=== PATIENT | female | born 1965 | race Caucasian/White ===

== ENCOUNTER 2020-02-29 15:20 | Day surgery (SDC) | payer BC ==
[~2020-02-29 15:20] MED LIST: CEFEPIME 2 GM in DEXTROSE 5%-WATER 100 ML IVPB ONE; CEFEPIME HCL 2 GM VIAL (RESTRICTED TO ID) IVPB ONE; CEFOXITIN SODIUM 1 GM IVPB ONE; DESFLURANE GAS 240 ML BOTTLE IH ONE; GENTAMICIN SO4 80 MG/2 ML VIAL IVPB ONE; GENTAMICIN SO4 80 MG/2 ML VIAL ONE; GLYCOPYRROLATE 0.2 MG/1 ML VIAL ONE; MIDAZOLAM HCL 2 MG/2 ML SINGLE DOSE VIAL ONE; MUPIROCIN 2% TOPICAL OINTMENT 22 GM TUBE TP ONE; NEOSTIGMINE METHYLSULFATE 0.5 MG/1 ML - 10 ML MDV ONE; ONDANSETRON 4 MG/2 ML VIAL IVPUSH PRN; ONDANSETRON 4 MG/2 ML VIAL ONE; PROMETHAZINE HCL 25 MG/1 ML VIAL IVPUSH PRN; PROPOFOL 20 ML ONE; ROCURONIUM BROMIDE 50 MG/5 ML SYRINGE ONE; SEVOFLURANE 250 ML BTL ONE; VANCOMYCIN 1,000 MG VIAL (RESTRICTED TO ID ONLY) IVPB ONE; VANCOMYCIN 1,000 MG VIAL (RESTRICTED TO ID ONLY) ONE; cefOXitin SODIUM 2 GM VIAL (RESTRICTED TO ID) IVPB ONE; oxyCODONE HCL 5 MG TABLET PO PRN
[2020-02-29] MEDS ORDERED: ACETAMINOPHEN 325 MG TABLET (FP) ONE (15:53)
[2020-02-29] MEDS ORDERED: oxyCODONE HCL 5 MG TABLET ONE (15:54)
[2020-02-29] MEDS ORDERED: oxyCODONE HCL 5 MG TABLET PO ONE (16:05)
[2020-02-29] MEDS ORDERED: ACETAMINOPHEN 325 MG TABLET (FP) PO ONE (16:05)
[2020-02-29] MEDS ORDERED: oxyCODONE HCL 5 MG TABLET PO PRN (18:56)
[2020-02-29] MEDS ORDERED: PROCHLORPERAZINE MALEATE 5 MG TABLET PO PRN (19:03)
[2020-02-29] MEDS ORDERED: CEFEPIME 2 GM in DEXTROSE 5%-WATER 100 ML IVPB SCH (19:15)
[2020-02-29 21:33] VITALS: BMI 28.9
[2020-03-01] MEDS ORDERED: CEFEPIME 2 GM in DEXTROSE 5%-WATER 100 ML IVPB SCH (02:00)
[2020-03-01] MEDS: oxyCODONE HCL 5 MG TABLET PO PRN ×2 (02:09→08:19)
[2020-03-01] MEDS ORDERED: PT OWN MED DRAWER 7, Y5N ONE (05:05)
[2020-03-01] MEDS: LACTATED RINGERS SOLUTION 1,000 ML IV SCH ×2 (06:31→07:38)
[2020-03-01] MEDS ORDERED: glyBURIDE 2.5 MG TABLET PO SCH (07:00)
[2020-03-01] MEDS ORDERED: metFORMIN HCL 500 MG TABLET (FP) PO SCH (07:00)
[2020-03-01 08:50] VITALS: BP 123/70; PULSE 92; TEMP 97.7
[2020-03-01] MEDS ORDERED: PANTOPRAZOLE 40 MG TABLET PO SCH (10:00)
[2020-03-01] MEDS ORDERED: LISINOPRIL 10 MG TABLET (FP) PO SCH (10:00)
[2020-03-01] MEDS ORDERED: ASPIRIN COATED 81 MG TABLET.EC PO SCH (10:00)
[2020-03-01] MEDS ORDERED: HYDROCHLOROTHIAZIDE 25 MG TABLET (FP) PO SCH (10:00)
--- NOTE | 2020-03-04 12:20 | OP ---
DATE OF OPERATION: 02/29/2020 PREOPERATIVE DIAGNOSIS: Open wound of right lower leg with exposure of Achilles tendon. POSTOPERATIVE DIAGNOSIS: Open wound of right lower leg with exposure of Achilles tendon. PROCEDURE: 1. Debridement of open wound of right lower leg and right thigh (280 sq cm total). 2. Complex closure of right medial thigh wound (30 cm length). 3. Elevation, revision, advancement, and re-insetting of right lower leg gracilis microvascular free flap (100 sq cm). 4. Application of vacuum-assisted closure dressing to right lower leg. ATTENDING SURGEON: Gee Olmstead MD CO-SURGEON: Trent Mendoza MD ANESTHESIA: General endotracheal. ESTIMATED BLOOD LOSS: Less than 20 mL. DRAINS: A number 15 round Nestor drain x1 to right medial thigh. SPECIMEN: Right lower leg wound culture to microbiology. COMPLICATIONS: None. CONDITION: Stable to recovery room, extubated. INDICATIONS: The patient is a 54-year-old female with multiple medical comorbidities including poorly controlled diabetes, peripheral vascular disease, active smoking, obesity, poor nutrition, and hypertension who developed an open wound of the right lower leg in December 2019. This was initially managed with local wound care. The patient then presented to mt and underwent debridement of the open wound and coverage with a gracilis microvascular free flap and split-thickness skin graft on February 15, 2020. The patient's microvascular free flap has maintained good perfusion, but there has been a lack of healing of both the gracilis flap to the surrounding skin edges as well as the right medial thigh donor site incision. The patient has been counseled that her active smoking and poor nutrition as well as poorly controlled diabetes significantly negatively impacts her healing potential. She is brought back to the operating room today for repeat irrigation and debridement and local tissue rearrangement and reclosure of her open wounds. The risks, benefits and alternatives of the surgery were discussed with the patient and her family preoperatively and all questions were answered. The risks include but are not limited to bleeding, infection, pain, need for revision or further surgery, damage to neighboring structures including nerves, arteries, veins and tendons, need for amputation in the future. The patient understands these risks and has elected to proceed with surgery. PROCEDURE: After proper identification and marking of the patient in the preoperative holding area, the patient was transported to the operating room and placed supine on the table where all noninvasive anesthesia monitors were applied. Intravenous access was established. General anesthesia was administered and the patient was intubated without difficulty. An SCD boot was applied to the left lower extremity. Intravenous antibiotics were then given as per the schedule. The patient was then carefully flipped into a prone position with care taken to pad all pressure points. At this point the patient's right lower extremity dressings were removed and the right leg was prepped and draped in the usual sterile fashion. Attention was first turned towards the irrigation and debridement of the open wound. Dr. Mendoza and Tomi began the procedures working independently as co-surgeons with separate instrument setups. Attention was first turned towards the right medial thigh. The skin edges were noted to have edge necrosis and early stages of separation. The medial thigh incision was opened with a Romero scissor. The necrotic skin edges were then sharply debrided with a curved iris scissor and the debridement continued down through the full thickness of the subcutaneous tissue down to the underlying exposed adductor muscle belly. Debridement of the base of the wound was then performed using a large curette in order to remove any inflammatory tissue. Once the debridement was completed down to the level of the underlying muscle belly, the pulse lavage system was used to copiously irrigate the right medial thigh wound. Hemostasis at this point was achieved. A number 15 round Nestor drain was then placed into the right medial thigh pocket and brought out through a separate stab incision distally and secured to the skin with 3-0 nylon suture. Attention at this point was turned towards the right medial thigh closure. The skin flaps were mobilized and advanced towards each other. A layered closure was then performed using a 0 Vicryl suture in an interrupted buried deep dermal fashion followed by a 0 Prolene suture in a simple interrupted fashion. Once the right medial thigh closure was completed, attention was turned towards the right lower leg. The gracilis flap was noted to be pink and well vascularized with a strong biphasic Doppler signal. There was, however, noted to be distal edge necrosis. The gracilis flap was completely released from the surrounding skin edges where it was intact. The muscle flap was then carefully elevated over the level of the underlying Achilles tendon. There was noted to be areas of liquefactive necrosis of the underlying tendon and there was also noted to be fibrinous debris and exudate on the sides of the tendon. With the muscle flap carefully retracted and care taken to ensure no twisting or kinking of the pedicle, a debridement of the open wound of the right lower leg was performed. Sharp debridement of the Achilles tendon was performed. All areas of liquefactive necrosis were debrided. A wound culture at this point was taken and sent to microbiology. A curette was used to debride the surrounding tissue on both sides of the tendon. Once all of the necrotic and infected tissue was removed, the wound edges were debrided sharply with a curved iris scissor. This was continued back to healthy bleeding dermal edges. Next, a copious amount of irrigation was used, using a combination of the pulse lavage system as well as chlorhexidine irrigation. At this point hemostasis was ensured. Next, the gracilis flap was advanced distally in order to cover the entire Achilles tendon. With the flap in its new position, it was inset distally using a 3-0 Biosyn suture in an interrupted buried fashion. The flap was then inset as much as possible to the surrounding skin edges using a 3-0 Biosyn in an interrupted buried fashion. Areas on both sides of the flap were left open with vascularized base and care was taken to ensure complete coverage of the Achilles tendon. Once the flap was inset, the decision was made to place a VAC dressing to keep the flap securely in place. Therefore, Xeroform coated with mupirocin ointment was placed over the gracilis flap and residual open wound areas. This was followed by a vacuum-assisted closure sponge which was cut to size and then was secured using the VAC adhesive and was hooked up to the VAC machine at 75 mmHg. Prior to placement of the VAC, the flap was noted to be well perfused and maintained a strong biphasic Doppler signal. With the VAC dressing in place, the patient was carefully flipped back into the supine position. Xeroform followed by Kerlix and Josesito bandage was applied to the right medial thigh incision. The right lower leg was further dressed with Kerlix and an Josesito bandage for padding. The drain was hooked up to bulb suction and at this point the patient was slowly awakened and was extubated without incident and was transported to recovery room in stable condition. GEE OLMSTEAD M.D. [id number]
== END 2020-03-01 12:39 | disposition home or self-care (01) ==
LOC: JASUSAT 15:20 → J5S 18:37 → JASUSAT 03-01 12:39
PROVIDERS: ATTEND Plastic Surgery
PROC: 0JBL0ZZ Excision of Right Upper Leg Subcutaneous Tissue and Fascia, Open Approach (ICD-10-PCS; 2020-02-29)
PROC: 0JBN0ZZ Excision of Right Lower Leg Subcutaneous Tissue and Fascia, Open Approach (ICD-10-PCS; principal; 2020-02-29 12:15)
DX: S81.801D Unspecified open wound, right lower leg, subsequent encounter (principal); E11.52 Type 2 diabetes mellitus with diabetic peripheral angiopathy with gangrene; I10 Essential (primary) hypertension; F17.210 Nicotine dependence, cigarettes, uncomplicated; E66.9 Obesity, unspecified
CPT/HCPCS: 82962; 87070; 87186; 87205; 94760; G0277